=== PATIENT | female | born 1945 ===

== ENCOUNTER 2024-02-12 17:24 | Emergency (ER) | payer MEDICARE, OTHER, SELFPAY ==
[2024-02-12 17:42] VITALS: BP 126/62
[2024-02-12 18:26] LABS: % Basophils 1.1 % (0-2); % Eosinophils 1.1 % (0-6); % Immature Granulocytes 0.4 % (0-0.5); % Lymphocytes 40.5 % (20.5-51.1); % Monocytes 10.8 % (1.7-9.3); % Neutrophils 46.1 % (42.2-75.2); Absolute Basophils 0.1 10^3/uL (0-0.2); Absolute Eosinophils 0.1 10^3/uL (0-0.7); Absolute Lymphocytes 2.3 10^3/uL (1.2-3.4); Absolute Monocytes 0.6 10^3/uL (0.1-0.6); Absolute Neutrophils 2.6 10^3/uL (1.4-6.5); Hematocrit 40.5 % (37.0-47.0); Hemoglobin 13.4 g/dL (12.0-16.0); Mean Corp Hgb Conc. 33.1 g/dL (33.0-37.0); Mean Corpuscular Hgb 29.3 pg (27.0-31.0); Mean Corpuscular Volume 88.4 fL (81.0-99.0); Mean Platelet Volume 9.7 fL (7.4-10.4); Nucleated Red Blood Cells % 0 %; Platelet Count 256 10^3/uL (130-400); Red Blood Cell Count 4.58 10^6/uL (4.20-5.40); Red Cell Dist. Width 14.2 % (11.5-14.5); White Blood Cell Count 5.6 10^3/uL (4.8-10.8)
[2024-02-12 18:41] LABS: Urine Albumin Negative (Neg - Trace); Urine Bilirubin Negative (Negative); Urine Character Bloody (Clear); Urine Color Straw; Urine Glucose Negative (Negative); Urine Ketone Negative (Negative); Urine Leukocyte Negative (Negative); Urine Nitrite Negative (Negative); Urine Occult Blood 4+ (Negative); Urine Specific Gravity 1.005 (<1.030); Urine Urobilinogen Negative (Neg - 1+); Urine pH 6.5 (5.0-9.0)
[2024-02-12 18:44] LABS: ALT (SGPT) 17 U/L (0-35); AST (SGOT) 23 U/L (14-36); Albumin 4.2 g/dl (3.5-5.0); Alkaline Phosphatase 86 U/L (38-126); Blood Urea Nitrogen 25 mg/dl (7-17); Calcium 9.7 mg/dl (8.4-10.2); Carbon Dioxide 30 mmol/L (22-30); Chloride 104 mmol/L (98-107); Glucose 115 mg/dl (70-99); Potassium 5.2 mmol/L (3.5-5.1); Sodium 141 mmol/L (135-145); Total Bilirubin 0.5 mg/dl (0.2-1.3); Total Protein 6.7 g/dl (6.3-8.2); eGFR 57.66
[2024-02-12 19:27] VITALS: BMI 33.4
[2024-02-12 19:28] VITALS: BP 111/56
[2024-02-12 19:31] LABS: Urine White Cell 0-2 /HPF (0-5)
[2024-02-12 20:00] VITALS: BP 116/81
--- NOTE | 2024-02-12 20:00 | ED.GENMED ---
History of Present Illness
General
Chief Complaint: Urinary Symptoms
Source: patient and family (Son)
Exam Limitations: none
Time Seen by Provider: 02/12/24 19:32
History of Present Illness
History of Present Illness:
This is a 78 year old female that comes in with c/o blood in her urine. States that this started today around 3pm. States that she has not burning but is urinating more frequently. States that she only has bleeding when she urinated. Denies any
fever, chills, chest pain, SOB, abd pain, nausea, vomiting, diarrhea, headache, dizziness, urinary burning.
Past History
Past History
ED Past Medical History: Arrthythmia, HTN and Hypothyroidism
ED Past Surgical History: None
Social History
Tobacco: Non-smoker
Alcohol: None
Drug: None
Personal:
Living: alone
Review of Systems
Review of Systems
All Other Systems: ROS reviewed and negative except as documented in HPI and ROS
Constitutional: Reports no symptoms; Denies fever or chills
EENT: Reports no symptoms
Respiratory: Reports no symptoms; Denies cough or trouble breathing
Cardiac: Reports no symptoms; Denies chest pain
ABD/GI: Reports no symptoms; Denies abdominal pain, nausea, vomiting or diarrhea
: Reports frequency and bleeding (Blood in the urine); Denies dysuria or urgency
Musculoskeletal: Reports no symptoms
Skin: Reports no symptoms
Neurological: Reports no symptoms; Denies dizzy or headache
Psychiatric: Reports no symptoms
Phy Exam
General Physical Exam
General Presentation: well appearing and no apparent distress
General age: appears stated age
General Skin: warm and dry
General Habitus: elderly
General Mental: alert
General Hydration: appears well hydrated
ENT Exam
ENT Exam: TM's normal, pharynx normal and neck supple
Eye Exam
Eye Exam: EOMI
Cardiovascular Exam
Cardiovascular Exam: regular rate/rhythm, no edema, no murmur and normal peripheral pulses
Pulmonary Exam
Pulmonary Exam: lungs clear, no respiratory distress, no rales, chest non tender, no crackles, no rhonchi, no wheezing and no cough
Gastrointestinal Exam
Gastrointestinal Exam: normal bowel sounds, non tender, soft, no organomegaly, no pulsatile mass and non distended
Genitourinary Exam Female
Vaginal Exam: normal and other (Negative for any bleeding)
Musculoskeletal Exam
Musculoskeletal Exam: full ROM and no edema
Skin Exam
Skin Exam: normal color, warm/dry, no rash and no petechia
Psychiatric Exam
Psychiatric Exam: normal mood/affect
Course
Orders/Labs/Results
Orders:
Orders
02/12/24 17:57
CMP [Comprehensive Metabolic Panel] Urgent
Complete Blood Count/With Diff Urgent
02/12/24 18:03
Urinalysis Reflex To Culture Urgent
Date Specimen was Collected: 02/12/24
Time Specimen was Collected: 17:44
Urine Microscopic Reflex Cult Urgent
02/12/24 20:00
CT Abd/pel Without Iv Or Oral Urgent
Comment:
Reason For Exam: Blood in urine,
Abnormal Lab Results
02/12/24 02/12/24
17:57 18:03
Monocytes % 10.8 H %
(1.7-9.3)
Potassium 5.2 H mmol/L
(3.5-5.1)
BUN 25 H mg/dl
(7-17)
Glucose 115 H mg/dl
(70-99)
Ur Occult Blood Reflex 4+ A
(Negative)
Urine RBC 7-10 A /HPF
(0-2)
02/12/24 17:57
02/12/24 17:57
Dehydration. Urine negative for infection positive for blood
Vital Signs
Initial and Last Documented VS:
Initial Vital Signs
Temp Pulse Resp BP Pulse Ox
98.2 F 70 16 126/62 98
02/12/24 17:42 02/12/24 17:42 02/12/24 17:42 02/12/24 17:42 02/12/24 17:42
Last Documented Vital Signs
Temp Pulse Resp BP Pulse Ox
98.2 F 70 20 116/81 95
02/12/24 17:42 02/12/24 19:27 02/12/24 19:27 02/12/24 20:00 02/12/24 20:49
MDM/Problems Addressed
Differential Diagnosis Includes:
renal calculus,
MDM/Problems Addressed:
This is a 78 year old female that comes in with c/o blood in her urine. States that she only has bleeding when she urinated.
will check labs and get CT scan as urine is negative for infection. This will r/o any renal calculus.
Back into see patient. Explained that her blood work shows dehydrated. Patient to increase her water intake to 8-8oz glasses daily. reviewed CT scan will have patient follow up with the Urologist. Patient to return with pain increased bleeding or
any other concerns.
Chronic conditions affecting care:
NA
Acute Exacerbation and/or Progression of Chronic Illness:
NA
*Radiology
Radiology exam reviewed: radiology read reviewed (CT no evidence of renal calculus. The urinary bladder is nondistended. Thre is a questionable focus of asymmetric thickening along the inferolateral right aspect of the urinary bladder measuring
approximate 1.9cm. Further evaluation with direct visualization may be considered as clinically warranted)
*EKG
Interpreted by ED Provider?: NA
Rate: EKG- N/A
*Muck Farmer Interpretation
Rate: Muck Farmer- N/A
*Critical Care Note
Total Time (30-74mins, 75-104mins- exclusive of procedures): Not Applicable
ED Attending Note
-
Portions of this chart may have been created with voice recognition software.� Occasional wrong word or��sound alike� substitutions may have occurred due to the inherent limitations of voice recognition software.
Discharge Plan
Departure
Patient Disposition: Home (Routine Discharge)
Date of Disposition: 02/12/24
Time of Disposition: :
Patient with high blood pressure during this ER visit?: No
Condition: Good
Covid-19: Not Applicable
Discharge Problem:
Hematuria
Instructions: Blood in the Urine (Hematuria), Adult (DC)
Prescriptions:
No Action
oxybutynin chloride 10 mg Tablet Extended Release 24hr
10 mg PO DAILY
levothyroxine [Synthroid] 100 mcg Tablet
100 mcg PO DAILY
pantoprazole 40 mg Tablet,Delayed Release (Dr/Ec)
40 mg PO DAILY
olmesartan 40 mg Tablet
40 mg PO DAILY
rosuvastatin 5 mg Tablet
5 mg PO DAILY
Xarelto 20 mg Tablet
20 mg PO DAILY
Patient Comments:
02/12/24: Patient states that she takes the medication twice a day, despite eCW and pharmacy records indicating she takes it once a day.
metoprolol succinate 25 mg Tablet Extended Release 24 Hr
25 mg PO DAILY
Referrals:
Gena Hinds MD [Family Provider] -
Michael Powell MD [Active] - Follow up in 2-3 days
Activity Restrictions/Additional Instructions:
As discussed, your blood work shows that you are dehydrated. Please increase your water intake to 8-8oz glasses daily. Your CT shows that there is an area of thickening that will need direct visualization. This will be done by the Urologist. Please
call them and set up an appointment for further evaluation. IF YOU HAVE PAIN OR INCREASED BLEEDING OR YOU HAVE ANY OTHER CONCERNS PLEASE RETURN TO THE EMERGENCY ROOM.
Interventions
Interventions:
*Risk Screen - Suicide Last Done: 02/12/24 19:27
*General Assessment Last Done: 02/12/24 19:27
*Neglect/Abuse Screening Last Done: 02/12/24 19:27
ED- Fall Risk Assessment Last Done: 02/12/24 19:27
*ED COVID-19 Vaccine History Last Done: 02/12/24 19:27
ED-Female Genitourinary Assessment Last Done: 02/12/24 19:27
Discharge Date and Time
Print Language: Filipino
[2024-02-12 22:23] VITALS: BP 104/58
== END 2024-02-12 22:33 | disposition home or self-care (01) ==
LOC: EMR 17:24
PROVIDERS: Emergency Medicine; EMERGENCY PHYSICIAN Emergency Medicine; FAMILY PHYSICIAN Internal Medicine
DX: R31.9 Hematuria, unspecified (principal); E86.0 Dehydration; E03.9 Hypothyroidism, unspecified; I10 Essential (primary) hypertension
CPT/HCPCS: 99284; 74176; 80053; 81003; 81015; 85025

== ENCOUNTER 2024-03-19 06:25 | Day surgery (SDC) | payer MEDICARE, OTHER, SELFPAY ==
--- NOTE | 2024-03-13 15:30 | PTCARENOTE ---
Patients 02/05 EKG abnormal- reviwed by Dr. Cardozo- no additional interventions required
[2024-03-19] VITALS (9 sets, daily range): BP systolic 98–134; BP diastolic 52–76; BMI 34.3; BMI 75.6
[2024-03-19] MEDS: NORMOSOL-R/PLASMALYTE-A 1000 IV (08:08)
[2024-03-19] MEDS: Pyridium 200 MG PO (08:08)
[2024-03-19] MEDS: SYRINGE NON-PUMP 50 ML IRRIG ×2 (10:19→10:20)
[2024-03-19] MEDS: SYRINGE NON-PUMP 50 MG IRRIG ×2 (10:19→10:20)
== END 2024-03-19 12:30 | disposition home or self-care (01) ==
LOC: SDS 06:25
PROVIDERS: ATTENDING PHYSICIAN Specialist
DX: C67.2 Malignant neoplasm of lateral wall of bladder (principal)
CPT/HCPCS: 52240; 88307; J9201

== ENCOUNTER 2024-04-16 06:29 | Day surgery (SDC) | payer MEDICARE, OTHER, SELFPAY ==
--- NOTE | 2024-04-09 13:13 | PTCARENOTE ---
Pt's EKG scanned, dated 02/06/24, showing Afib was used for prior surgery 03/19/24.
[2024-04-16] VITALS (11 sets, daily range): BP systolic 95–135; BP diastolic 1–81; BMI 34.4
[2024-04-16] MEDS: CYSVIEW KIT 100 MG INTRAVES (11:04)
[2024-04-16] MEDS: SYRINGE NON-PUMP 50 MG IRRIG ×2 (12:24→12:25)
[2024-04-16] MEDS: SYRINGE NON-PUMP 50 ML IRRIG ×2 (12:24→12:25)
== END 2024-04-16 14:16 | disposition home or self-care (01) ==
LOC: SDS 06:29
PROVIDERS: ATTENDING PHYSICIAN Specialist
PROC: 0TBB8ZZ Excision of Bladder, Via Natural or Artificial Opening Endoscopic (ICD-10-PCS; 2024-04-16)
DX: D30.3 Benign neoplasm of bladder (principal); Z85.51 Personal history of malignant neoplasm of bladder
CPT/HCPCS: 52235; 88305; A9589; J9201

== ENCOUNTER → 2024-10-22 14:19 | Outpatient (REF) | payer MEDICARE, OTHER, SELFPAY | LOC: CLAB 14:19 | PROVIDERS: ATTENDING PHYSICIAN Specialist | DX: C67.9 Malignant neoplasm of bladder, unspecified (principal) | CPT/HCPCS: 88112 ==